=== PATIENT | male | born 1975 | race African-American/Black ===

== ENCOUNTER 2022-10-14 13:18 | Emergency (ER) | payer MEDICARE, MEDICAID, SELFPAY ==
--- NOTE | ~2022-10-14 | XR_ITS ---
EXAMINATION: XR FOOT, RIGHT CLINICAL INFORMATION: Right foot pain COMPARISON: None TECHNIQUE: AP, lateral, and oblique views of the right foot. FINDINGS: No fracture. No dislocation. Normal mineralization and alignment. There is enthesopathy of the distal Achilles tendon attachment. Tiny plantar calcaneal osteophyte. Normal tarsal metatarsal alignment. XR/XR foot RT 2V IMPRESSION: No acute osseous abnormality.
--- NOTE | 2022-10-14 13:24 | ED.GENADULT ---
HPI - General Adult General Chief complaint: Extremity Injury, Lower <LEANDRO Kenyon Last Filed: 10/14/22 19:38> Stated complaint: r foot pain <LEANDRO Kenyon Last Filed: 10/14/22 19:38> Time Seen by Provider: 10/14/22 13:43 <LEANDRO Kenyon Last Filed: 10/14/22 19:38> Source: patient <LEANDRO Barbosa Last Filed: 10/14/22 15:31> Mode of arrival: ambulatory <LEANDRO Barbosa Last Filed: 10/14/22 15:31> Limitations: no limitations <LEANDRO Barbosa Last Filed: 10/14/22 15:31> History of Present Illness HPI narrative: Patient is a 47 year old assigned male at with a history of HTN and gout presenting to the emergency department today with right foot pain. Patient states that he is having right foot pain between his 3rd and 4th toes on the top and bottom parts of his foot. Patient states that he has previous had gout in this foot but that felt different. Patient denies any dizziness, lightheadedness, abdominal pain, nausea, vomiting, fever, chills, blurry vision, double vision, loss of vision, chest pain, difficulty breathing, shortness of breath, back pain, night sweats, pain with urination, increased urinary frequency, increased urinary urgency, blood in his urine or stool, syncope or a near syncopal episode, recent trauma or falls, bowel incontinence, bladder incontinence, bowel retention, bladder retention, or any other complaints at this time. <LEANDRO Barbosa Last Filed: 10/14/22 15:31> Onset (ago): day(s) <LEANDRO Barbosa Last Filed: 10/14/22 15:31> Location: right and lower extremity (foot) <LEANDRO Barbosa Last Filed: 10/14/22 15:31> Radiation: non-radiation <LEANDRO Barbosa Last Filed: 10/14/22 15:31> Severity: mild <LEANDRO Barbosa Last Filed: 10/14/22 15:31> Severity scale (1-10): 2 <LEANDRO Barbosa Last Filed: 10/14/22 15:31> Quality: aching and dull <LEANDRO Barbosa - Last Filed: 10/14/22 15:31> Pain Consistency: constant <LEANDRO Barbosa - Last Filed: 10/14/22 15:31> Relieving factors: none <LEANDRO Barbosa - Last Filed: 10/14/22 15:31> Exacerbating factors: none <LEANDRO Barbosa - Last Filed: 10/14/22 15:31> Associated symptoms: denies other symptoms <LEANDRO Barbosa - Last Filed: 10/14/22 15:31> Treatments prior to arrival: none <LEANDRO Barbosa - Last Filed: 10/14/22 15:31> Related Data Home medications: Previous Rx's Medication Instructions Recorded amlodipine 10 mg tablet 10 mg PO DAILY #30 tabs 09/05/20 prednisone 20 mg tablet 20 mg PO DAILY 7 days #7 tabs 10/14/22 <LEANDRO Kenyon - Last Filed: 10/14/22 19:38> Allergies/adverse reactions: Allergies Allergy/AdvReac Type Severity Reaction Status Date / Time No Known Allergies Allergy Unverified 06/15/20 19:42 [No Known Allergies*] <LEANDRO Kenyon - Last Filed: 10/14/22 19:38> Review of Systems Constitutional: Constitutional: Reports no additional constitutional complaints, Denies chills, Denies fever(s) and Denies night sweats <LEANDRO Barbosa - Last Filed: 10/14/22 15:31> Eyes: Eyes: Reports no additional eye complaints, Denies blurry vision, Denies change in vision, Denies diplopia, Denies eye discharge, Denies loss of vision and Denies eye pain <LEANDRO Barbosa - Last Filed: 10/14/22 15:31> ENT: Denies dizziness <LEANDRO Barbosa - Last Filed: 10/14/22 15:31> Cardiovascular: Cardiovascular: Reports no additional cardiovascular complaints, Denies chest pain, Denies lightheadedness, Denies Loss of Consciousness and Denies dyspnea <LEANDRO Barbosa - Last Filed: 10/14/22 15:31> Respiratory: Respiratory: Reports no additional respiratory complaints and Denies dyspnea <LEANDRO Barbosa - Last Filed: 10/14/22 15:31> Gastrointestinal: Gastrointestinal: Reports no additional gastrointestinal complaints, Denies abdominal pain, Denies melena, Denies hematochezia, Denies change in bowel habits and Denies change in stool character <LEANDRO Barbosa - Last Filed: 10/14/22 15:31> Genitourinary: Genitourinary: Reports no additional male genitourinary complaints, Denies hematuria, Denies oliguria, Denies difficulty urinating, Denies dysuria, Denies urinary frequency, Denies urinary hesitancy, Denies urinary incontinence and Denies urinary urgency <LEANDRO Barbosa - Last Filed: 10/14/22 15:31> Musculoskeletal: Musculoskeletal: Reports no additional musculoskeletal complaints, Denies numbness and Denies tingling <LEANDRO Barbosa - Last Filed: 10/14/22 15:31> Comments: right foot pain <LEANDRO Barbosa - Last Filed: 10/14/22 15:31> Neurologic: Denies dizziness, Denies loss of vision, Denies numbness and Denies tingling <LEANDRO Barbosa - Last Filed: 10/14/22 15:31> Psychiatric: Psychiatric: Reports no additional psychiatric complaints <LEANDRO Barbosa Last Filed: 10/14/22 15:31> Endocrine: Endocrine: Reports no additional endocrine complaints <LEANDRO Barbosa - Last Filed: 10/14/22 15:31> Hematologic/Lymphatic: Hematologic/Lymphatic: Reports no additional hematologic/lymphatic complaints <LEANDRO Barbosa Last Filed: 10/14/22 15:31> Allergic/Immunologic: Allergic/Immunologic: Reports no additional allergic/immunologic complaints <LEANDRO Barbosa - Last Filed: 10/14/22 15:31> PMFSH Past Medical History Attestation statement: The following information was validated with the patient. <LEANDRO Barbosa Last Filed: 10/14/22 15:31> Source: old records reviewed and nursing notes reviewed <LEANDRO Barbosa Last Filed: 10/14/22 15:31> Family History Family History: Family History Father No problems noted. Mother Dementia Diabetes <LEANDRO Kenyon - Last Filed: 10/14/22 19:38> Social History Social History: Social History Alcohol intake: never Smoked in Last 30 Days: No Use of substances other than those prescribed or required for medical reasons: No Advance Directives: No Advance Directives Information Provided: Yes <LEANDRO Kenyon - Last Filed: 10/14/22 19:38> Physical Exam ED Vital Signs: Vital Signs - 24 hr 10/14/22 13:25 10/14/22 13:39 Temperature 98.3 F 99.2 F Pulse Rate 114 H 119 H Respiratory Rate 18 Blood Pressure 181/118 H 165/97 H Pulse Oximetry 96 99 Oxygen Delivery Method Room Air Room Air BMI result Body Mass Index 26.2 <LEANDRO Kenyon - Last Filed: 10/14/22 19:38> Vital Signs - 24 hr 10/14/22 13:25 10/14/22 13:39 Temperature 98.3 F 99.2 F Pulse Rate 114 H 119 H Respiratory Rate 18 Blood Pressure 181/118 H 165/97 H Pulse Oximetry 96 99 Oxygen Delivery Method Room Air Room Air BMI result Body Mass Index 26.2 <LEANDRO Barbosa - Last Filed: 10/14/22 15:31> Const General: cooperative, no acute distress, alert and awake <LEANDRO Barbosa - Last Filed: 10/14/22 15:31> Nutritional Appearance: well nourished <LEANDRO Barbosa - Last Filed: 10/14/22 15:31> Orientation/consciousness: patient oriented x3 <LEANDRO Barbosa Last Filed: 10/14/22 15:31> Limitations: no limitations <LEANDRO Barbosa Last Filed: 10/14/22 15:31> HENMT Head: Yes normal to inspection and Yes atraumatic <LEANDRO Barbosa Last Filed: 10/14/22 15:31> Ears: hearing grossly normal bilaterally and external ears normal <LEANDRO Barbosa Last Filed: 10/14/22 15:31> General nose exam: Normal external nose present, no nasal discharge noted and no epistaxis <Conchis Harrisonhoward MO - Last Filed: 10/14/22 15:31> Face and sinus: Yes normal facial exam, No abrasion and No laceration <Conchis Harrisonhoward MO - Last Filed: 10/14/22 15:31> Mouth: Normal oral and palatal mucosa present, no drooling and no muffled voice <Conchis Harrisonhoward MO - Last Filed: 10/14/22 15:31> Eyes General: appearance normal, both eyes and all related structures <Conchis Harrisonhoward MO - Last Filed: 10/14/22 15:31> Periorbital: periorbital findings normal <Conchis Harrisonhoward MO - Last Filed: 10/14/22 15:31> Eyelids: Yes eyelids normal <Conchis Harrisonhoward MO - Last Filed: 10/14/22 15:31> Conjunctivae: conjunctivae normal <Conchisjade Harrisonhoward MO - Last Filed: 10/14/22 15:31> Pupils: Equal, round and reactive pupils present <Conchis Harrisonhoward MO - Last Filed: 10/14/22 15:31> EOM: EOMs intact bilaterally <Conchis Harrisonhoward MO - Last Filed: 10/14/22 15:31> Neck Neck: Yes normal visual inspection, Yes full ROM and Yes no lymphadenopathy <Conchis Harrisonhoward MO - Last Filed: 10/14/22 15:31> Chest Chest palpation & inspection: normal inspection of the chest <Conchis Allan MO - Last Filed: 10/14/22 15:31> Resp Effort & Inspection: normal respiratory effort and able to speak in complete sentences <Conchisjade Harrisonhoward MO - Last Filed: 10/14/22 15:31> Auscultation: clear to auscultation bilaterally <Conchisjade Harrisonhoward MO - Last Filed: 10/14/22 15:31> Cardio Rate: regular rate <Conchis Allan MO - Last Filed: 10/14/22 15:31> Rhythm: regular rhythm <Conchis Allan MO - Last Filed: 10/14/22 15:31> GI Inspection: Yes normal to inspection <Conchis Lemus MO - Last Filed: 10/14/22 15:31> Palpation (GI): Soft to palpation, not firm, nontender, no guarding and not rigid <Conchis Harrisonhoward PA - Last Filed: 10/14/22 15:31> Neuro General: patient oriented x3 and moves all extremities <Conchis Lemus PA - Last Filed: 10/14/22 15:31> Cranial nerves: Yes Equal, round and reactive pupils present <Conchis Lemus PA - Last Filed: 10/14/22 15:31> Cognition (Neuro): normal cognition <Conchis Harrisonhoward PA - Last Filed: 10/14/22 15:31> Motor exam (neuro): 5/5 motor strength present throughout <Conchis Harrisonhoward PA - Last Filed: 10/14/22 15:31> Sensory Exam: Normal double simultaneous stimulation for sensation <Conchis Harrisonhoward PA - Last Filed: 10/14/22 15:31> Coordination: [id number] test normal <Conchis Harrisonhoward PA - Last Filed: 10/14/22 15:31> Extrem Other: pain with palpation of the right dorsal foot between the 3rd and 4th toes <Conchis Harrisonhoward PA - Last Filed: 10/14/22 15:31> General: Yes normal to inspection, Yes full ROM and Yes capillary refill normal <Conchis Harrisonhoward PA - Last Filed: 10/14/22 15:31> Psych Appearance: grossly normal <Conchis Harrisonhoward PA - Last Filed: 10/14/22 15:31> Mental Status: mental status grossly normal <Conchisjade HarrisonLEANDRO lawrence - Last Filed: 10/14/22 15:31> Affect: normal affect <Conchis Harrisonhoward PA - Last Filed: 10/14/22 15:31> Attitude: cooperative <Conchis Harrisonhoward PA - Last Filed: 10/14/22 15:31> Thought process: Normal thought process present <Conchis LEANDRO Lemus - Last Filed: 10/14/22 15:31> Thought content: Normal thought content present <Conchis Harrisonhoward PA - Last Filed: 10/14/22 15:31> Insight: Good insight present (Psych) <LEANDRO Barbosa - Last Filed: 10/14/22 15:31> Course Course Course Narrative: RME: 47 yold male presents to the ED for right foot pain. patient does not recall any trauma. ON exam right foot dorsal surface is slightly more swollen than the left and is tender. no erythema, ulcers, wounds, or pus discharge. Xray ordered. During evaluton patient states having gout and has no gout meds for 2 years., Will order just foot xray incase there is a fractue from forgetten trauma to foot. <LEANDRO Kenyon - Last Filed: 10/14/22 19:38> Medications Administered Discontinued Medications Generic Name Dose Route Start Last Admin Trade Name Freq PRN Reason Stop Dose Admin Ketorolac Tromethamine 15 mg 10/14/22 15:15 10/14/22 15:19 Ketorolac Tromethamine 15 Mg/Ml Vial IM 10/14/22 15:16 15 mg ONCE ONE Administration <LEANDRO Kenyon - Last Filed: 10/14/22 19:38> Medications Administered Discontinued Medications Generic Name Dose Route Start Last Admin Trade Name Freq PRN Reason Stop Dose Admin Ketorolac Tromethamine 15 mg 10/14/22 15:15 10/14/22 15:19 Ketorolac Tromethamine 15 Mg/Ml Vial IM 10/14/22 15:16 15 mg ONCE ONE Administration <LEANDRO Barbosa - Last Filed: 10/14/22 15:31> Medical Decision Making Medical Decision Making MDM Narrative: Patient is a 47 year old assigned male at with a history of gout and HTN presenting to the emergency department today with right foot pain. Patient's physical exam showed tenderness to palpation of the dorsal right foot between the 3rd and 4th toes. Patient's right foot x-ray showed no acute process. I explained my physical exam findings as well as all test results to the patient. I answered all questions asked by the patient. I stressed the importance of the patient taking his medication as prescribed. I stressed the importance of the patient following up with his primary care provider. I stressed the importance of the patient returning to the emergency department immediately if his symptoms were to worsen or if [he/she/they] were to develop any dizziness, shortness of breath, difficulty breathing, chest pain, blurry vision, loss of vision, nausea, vomiting, abdominal pain, fever, chills, back pain, or any other complaints. Patient verbalized agreement and understanding with this treatment plan and discharge. <LEANDRO Barbosa Last Filed: 10/14/22 15:31> Differential Diagnosis Differential Diagnoses: The differential diagnosis associated with the presentation includes <LEANDRO Barbosa Last Filed: 10/14/22 15:31> foot pain <LEANDRO Barbosa Last Filed: 10/14/22 15:31> Radiology Impression Discussion of test interpretation with radiology: I have reviewed the radiologist's reading. <LEANDRO Barbosa Last Filed: 10/14/22 15:31> Radiologist Impression: My interpretation is in agreement with the radiologist's impression of this imaging study. EXAMINATION: XR FOOT, RIGHT CLINICAL INFORMATION: Right foot pain? COMPARISON: None? TECHNIQUE: AP, lateral, and oblique views of the right foot. FINDINGS: No fracture. No dislocation. Normal mineralization and alignment. There is enthesopathy of the distal Achilles tendon attachment. Tiny plantar calcaneal osteophyte. Normal tarsal metatarsal alignment.? XR/XR foot RT 2V IMPRESSION: No acute osseous abnormality. Dictated By: Mansoor Peck MD Signed By: Electronically signed by Mansoor Peck MD 10/14/22 1509 <LEANDRO Barbosa Last Filed: 10/14/22 15:31> Discharge Plan Discharge Clinical Impression: Acute foot pain <LEANDRO Kenyon Last Filed: 10/14/22 19:38> Patient Disposition: Home, Self-Care <LEANDRO Kenyon Last Filed: 10/14/22 19:38> Additional Instructions: Follow up with your primary care provider. Return to the emergency department immediately if your symptoms worsen or if you develop any dizziness, shortness of breath, difficulty breathing, chest pain, blurry vision, loss of vision, nausea, vomiting, abdominal pain, fever, chills, back pain, or any other complaints. <LEANDRO Kenyon - Last Filed: 10/14/22 19:38> Prescriptions: New prednisone 20 mg tablet 20 mg PO DAILY 7 Days Qty: 7 0RF No Action amlodipine 10 mg tablet 10 mg PO DAILY Qty: 30 4RF <LEANDRO Kenyon - Last Filed: 10/14/22 19:38> Referrals: Raj Montes PA-C [Primary Care Provider] - <LEANDRO Kenyon - Last Filed: 10/14/22 19:38> Stand Alone Forms: Work/School Release <LEANDRO Kenyon - Last Filed: 10/14/22 19:38> Interventions: ED Discharge Assessment Last Done: 10/14/22 15:22 <LEANDRO Kenyon - Last Filed: 10/14/22 19:38> Discharge Date/Time: 10/14/22 15:24 <LEANDRO Kenyon - Last Filed: 10/14/22 19:38> Print Language: Honduran <LEANDRO Kenyon - Last Filed: 10/14/22 19:38>
[2022-10-14 13:25] VITALS: BP 181/118; PULSE 114; RESP 18; TEMP 36.8; O2SAT 96; BMI 26.2
[2022-10-14 13:39] VITALS: BP 165/97; PULSE 119; TEMP 37.3; O2SAT 99
[2022-10-14] MEDS: Ketorolac Tromethamine 15 MG/ML VIAL IM (15:19)
== END 2022-10-14 15:24 | disposition home or self-care (01) ==
PROVIDERS: Emergency Provider Emergency Medicine; PCP Physician Assistant
DX: M79.671 Pain in right foot (principal); I10 Essential (primary) hypertension
CPT/HCPCS: 73620; 96372; 99284; J1885